=== PATIENT | male | born 1990 | race Caucasian/White ===

== ENCOUNTER 2018-04-28 15:32 | Emergency (ER) | payer OTHER ==
[~2018-04-28] VITALS: Ht 180.3 cm; Wt 104.5 kg
[2018-04-28 15:46] VITALS: TEMP 37.2; Ht 180.3 cm; Wt 104.5 kg
--- NOTE | 2018-04-28 16:57 | DIAGNOSTIC IMAGING REPORT ---
SINGLE VIEW CHEST CLINICAL HISTORY: Fatigue. Syncope. FINDINGS: An AP, portable, upright chest radiograph is obtained. No prior studies are available for comparison at the time of dictation. The examination is degraded by portable technique and patient rotation. The cardiomediastinal silhouette is unremarkable. There are low lung volumes. Bibasilar airspace opacities are noted. No large pleural effusion or pneumothorax is seen. The bony thorax is grossly intact. IMPRESSION: There are bibasilar airspace opacities. This could represent atelectasis versus pneumonia/aspiration pneumonitis. Clinical correlation will be required and radiographic follow-up to resolution is recommended. Electronically signed by: Juan R Justin M.D. 04/28/2018 4:55 PM Dictated Date/Time: 04/28/2018 4:54 PM
[2018-04-28 17:11] LABS: BASO % 0.2 %; BASO ABS # 0.02 K/uL (0-0.2); EOS % 3.6 %; EOS ABS # 0.29 K/uL (0-0.5); HEMATOCRIT 46.5 % (42-52); IG# 0.03 K/uL (0.00-0.02); LYMPH % 23.1 %; LYMPH ABS # 1.88 K/uL (1.2-3.4); MEAN CELL VOLUME 85.8 fL (80-100); MEAN CORPUSCULAR HEMOGLOBIN 29.5 pg (25-34); MEAN CORPUSCULAR HGB CONC 34.4 g/dl (32-36); MEAN PLATELET VOLUME 11.2 fL (7.4-10.4); MONO % 8.1 %; MONO ABS # 0.66 K/uL (0.11-0.59); NEUT % 64.6 %; NEUT ABS # 5.26 K/uL (1.4-6.5); PLATELET COUNT 217 K/uL (130-400); RED CELL DISTRIBUTION WIDTH CV 13.9 % (11.5-14.5); RED CELL DISTRIBUTION WIDTH SD 43.4 fL (36.4-46.3); WHITE BLOOD COUNT 8.14 K/uL (4.8-10.8)
[2018-04-28] MEDS ORDERED: IBUP-1050 PO (17:20)
[2018-04-28] MEDS ORDERED: LEVO-519 PO ×2 (17:20→18:54)
[2018-04-28 17:39] LABS: ALBUMIN 4.1 gm/dl (3.4-5.0); CREATININE 1.18 mg/dl (0.60-1.40); POTASSIUM 3.8 mmol/L (3.5-5.1); TOTAL PROTEIN 7.6 gm/dl (6.4-8.2)
[2018-04-28 19:02] VITALS: BP 148/85; PULSE 78; O2SAT 95
--- NOTE | 2018-04-29 02:56 | EMERGENCY ROOM VISIT NOTE ---
ED Visit Note First contact with patient: 15:53 Chief Complaint: Fatigue. History of Present Illness: Mr. Herbert is a 27-year-old white male who ambulates into the ED complaining of extreme fatigue. Historically patient reports at age 18 he had radiation treatment done for hyperthyroid and has been on synthetic thyroid hormones since that time. He reports 4 months ago he had his thyroid levels checked and they were normal. 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 He reports technically he is homeless but he has been living with friends until he signs a release for a new apartment the beginning of next month. Patient reports for the last 2 weeks he has been feeling extremely fatigued and questions if this fatigue is caused from a thyroid dysfunction. He reports he has been taking his thyroid medication as prescribed and he feels no different. He has not identified any aggravating or alleviating factors related to his complain of fatigue. He denies any associated symptoms including fevers, chills , sweats, headaches, dizziness, lightheadedness, recent head trauma, neurological symptoms like visual changes, hearing changes, difficulty speaking , difficulty swallowing, difficulty ambulating/coordinating body movements, neck pain, back pain, chest pain, shortness of breath, difficulty breathing, palpitations, orthopnea, dependent edema, abdominal pain, decreased appetite, nausea, vomiting, diarrhea, constipation, rectal bleeding, black/tarry stools, easy bleeding/bruising, weight loss, hot and cold intolerance, excessive sweating. Patient did report he had a cyst on his thigh when I asked to look at it he felt that he did not want to have it examined today and that when he makes his final transition to this area he will find a primary care provider to look at it. Review of Systems: As noted above in history of present illness. All body systems were reviewed and found to be negative as noted above. Past Medical History: As previously noted and unspecified skin disorder. Current Medications: Synthroid, ibuprofen. Allergies to Medications: Patient denies. Social History: Patient is not employed; he reports she is currently homeless and is living in multiple places with friends until he signs at least the beginning of the month; he denies alcohol use. Physical Examination: Vital Signs: Date Time Temp Pulse Resp B/P (MAP) Pulse Ox O2 Delivery O2 Flow Rate FiO2 04/28/18 19:02 78 16 148/85 95 04/28/18 18:56 78 16 148/85 95 Room Air 04/28/18 15:46 37.2 98 17 134/85 98 Room Air GENERAL: 27-year-old male in no acute distress, nontoxic-appearing, afebrile and hemodynamically stable. NEUROLOGICAL: Awake, alert and oriented to person, place and time. Answering questions appropriately and following commands. Normal gait. Good hand eye coordination. Cranial nerves II through XII grossly intact. Good short-term and long-term recall. Normal rapid alternating movements of the hands and fingers. SKIN: Warm, dry and pink. No soft tissue eruptions or trauma noted. HEENT: Atraumatic and normocephalic. PERRLA. EOMI without nystagmus. Sclera white and conjunctiva pink. No drainage from naris. Oral cavity moist and pink. Pharynx is nonerythematous or edematous. Speech normal. No lymphadenopathy. Trachea midline. No jugular venous distention. BACK: No tenderness over the bony spine. No CVA tenderness. THORAX: Lungs sounds are clear to auscultation and equal bilaterally with symmetrical chest wall. No wheezing, rales or rhonchi. No crepitus, tenderness , subcutaneous air or deformities noted. HEART: Regular rate and rhythm. No gallops, rubs or murmurs are appreciated. ABDOMEN: Flat, soft and nontender. Positive bowel sounds in all quadrants. No guarding, rigidity or organomegaly. EXTREMITIES: Moves all extremities well on command and with purpose. All distal neurovascular statuses are intact and equal bilaterally. No calf tenderness or cords. ED Course: Patient is assessed as noted above. Patient's medication list was reviewed. Laboratory Testing: Test 04/28/18 16:57 04/28/18 17:04 04/28/18 17:27 Range/Units White Blood Count 8.14 4.8-10.8 K/uL Red Blood Count 5.42 4.7-6.1 M/uL Hemoglobin 16.0 14.0-18.0 g/dL Hematocrit 46.5 42-52 % Mean Corpuscular Volume 85.8 80-100 fL Mean Corpuscular Hemoglobin 29.5 25-34 pg Mean Corpuscular Hemoglobin Concent 34.4 32-36 g/dl Platelet Count 217 130-400 K/uL Mean Platelet Volume 11.2 7.4-10.4 fL Neutrophils (%) (Auto) 64.6 % Lymphocytes (%) (Auto) 23.1 % Monocytes (%) (Auto) 8.1 % Eosinophils (%) (Auto) 3.6 % Basophils (%) (Auto) 0.2 % Neutrophils # (Auto) 5.26 1.4-6.5 K/uL Lymphocytes # (Auto) 1.88 1.2-3.4 K/uL Monocytes # (Auto) 0.66 0.11-0.59 K/uL Eosinophils # (Auto) 0.29 0-0.5 K/uL Basophils # (Auto) 0.02 0-0.2 K/uL RDW Standard Deviation 43.4 36.4-46.3 fL RDW Coefficient of Variation 13.9 11.5-14.5 % Immature Granulocyte % (Auto) 0.4 % Immature Granulocyte # (Auto) 0.03 0.00-0.02 K/uL Sodium Level 136 136-145 mmol/L Potassium Level 3.8 3.5-5.1 mmol/L Chloride Level 105 98-107 mmol/L Carbon Dioxide Level 26 21-32 mmol/L Anion Gap 5.0 3-11 mmol/L Blood Urea Nitrogen 13 7-18 mg/dl Creatinine 1.18 0.60-1.40 mg/dl Est Creatinine Clear Calc Drug Dose 116.7 ml/min Estimated GFR () 98.1 Estimated GFR (Non- 84.7 BUN/Creatinine Ratio 11.4 10-20 Random Glucose 89 70-99 mg/dl Calcium Level 9.0 8.5-10.1 mg/dl Total Bilirubin 0.7 0.2-1 mg/dl Direct Bilirubin 0.1 0-0.2 mg/dl Aspartate Amino Transf (AST/SGOT) 29 15-37 U/L Alanine Aminotransferase (ALT/SGPT) 98 12-78 U/L Alkaline Phosphatase 98 45-117 U/L Total Protein 7.6 6.4-8.2 gm/dl Albumin 4.1 3.4-5.0 gm/dl Thyroid Stimulating Hormone (TSH) 2.880 0.300-4.500 uIu/ml Free Thyroxine 1.38 0.80-1.60 ng/dl Free Triiodothyronine 2.85 2.30-4.20 pg/ml Monoscreen NEG NEG Bedside Troponin I < 0.030 0-0.045 ng/ml Urine Color DK YELLOW Urine Appearance CLEAR CLEAR Urine pH 5.5 4.5-7.5 Urine Specific [place] 1.022 1.000-1.030 Urine Protein NEG NEG Urine Glucose (UA) NEG NEG Urine Ketones NEG NEG Urine Occult Blood NEG NEG Urine Nitrite NEG NEG Urine Bilirubin NEG NEG Urine Urobilinogen NEG NEG Urine Leukocyte Esterase NEG NEG Urine Opiates Screen NEG NEG Urine Methadone, Qualitative NEG NEG Urine Barbiturates NEG NEG Urine Phencyclidine (PCP) Level NEG NEG Ur Amphetamine/Methamphetamine NEG NEG MDMA (Ecstasy) Screen NEG NEG Urine Benzodiazepines Screen NEG NEG Urine Cocaine Metabolite NEG NEG Urine Marijuana (THC) NEG NEG EKG: Was read by myself and reviewed with Dr. Childress; shows normal sinus rhythm with a ventricular rate of 75 bpm. Normal axis, intervals and complexes. No acute ST changes indicating ischemia, injury or infarction. No previous to compare. Patient was reassessed multiple times during her stay in the emergency department. Patient's case was reviewed with Dr. Childress; we agreed on diagnostic approach, treatment, disposition and plan. Patient was educated about today's findings and instructed on his treatment plan ; he verbalized understanding and agreement with this plan. Clinical Impression: Fatigue. Decision-Making: Initially my differential diagnosis I considered infection, thyroid dysfunction, acute coronary syndrome, electrolyte abnormality, drug abuse and other causes. Disposition: Patient discharged home in stable condition; prior to departure he was reassessed and subjectively reported he was feeling the same. Plan: I did give the patient a refill on his Synthroid progression for 1 month. Patient was encouraged to seek out local primary care providers for follow-up care and treatment. Patient was encouraged return the ED for worsening symptoms or any new/ concerning symptoms.
== END 2018-04-28 19:02 | disposition home or self-care (01) ==
LOC: EDUNIT# 15:32 → C.EDB 15:36 → C.EDC 19:02
DX: R53.83 Other fatigue (principal); E05.90 Thyrotoxicosis, unspecified without thyrotoxic crisis or storm; Z79.1 Long term (current) use of non-steroidal anti-inflammatories (NSAID); Z79.899 Other long term (current) drug therapy